=== PATIENT | male | born 1995 | race Caucasian/White ===

== ENCOUNTER 2024-07-06 07:12 | Emergency (ER) | payer BC ==
[~2024-07-06] VITALS: Ht 185.4 cm; Wt 95.3 kg
[2024-07-06 07:27] VITALS: BP 133/80; TEMP 98.3
[2024-07-06] MEDS ORDERED: IBUPROFEN 600 MG TABLET ONE (07:33)
[2024-07-06] MEDS: IBUPROFEN 600 MG TABLET PO ONE (07:37)
[2024-07-06] MEDS ORDERED: OSEL75CA PO (08:32)
[2024-07-06 08:37] VITALS: O2SAT 99
== END 2024-07-06 08:39 | disposition home or self-care (01) ==
LOC: ER 07:17
DX: J11.1 Influenza due to unidentified influenza virus with other respiratory manifestations (principal); F12.90 Cannabis use, unspecified, uncomplicated; Z20.822 Contact with and (suspected) exposure to COVID-19